=== PATIENT | female | born 1990 | race Asian ===

== ENCOUNTER 2023-11-12 21:15 | Inpatient (IN) | payer BC ==
[2023-11-12] MEDS: Lactated Ringers 1,000 ML IV SCH (21:25)
[2023-11-12] MEDS ORDERED: Sodium Chloride 0.9% 10 ML Syringe FLUSH PRN (21:28)
[2023-11-12] MEDS ORDERED: Lidocaine 1% 50 ML MDV INJECT PRN (21:28)
[2023-11-12] MEDS ORDERED: Nalbuphine 10 MG/ML Syringe IVPUSH PRN (21:28)
[2023-11-12] MEDS ORDERED: Ondansetron 4 MG/2 ML SDV IVPUSH PRN (21:28)
[2023-11-12 21:47] LABS: BASOPHILS PERCENT AUTO 0.2 % (0.0-1.0); EOSINOPHILS PERCENT AUTO 0.1 % (0.0-6.0); HEMATOCRIT 37.7 % (37.0-47.0); HEMOGLOBIN 12.8 gm/dl (12.0-16.0); IMMATURE GRAN PERCENT AUTO 0.7 % (0.0-0.4); LYMPHOCYTES ABSOLUTE AUTO 1.6 K/mm3 (1.0-4.8); LYMPHOCYTES PERCENT AUTO 11.2 % (24.0-44.0); MEAN CORPUSCULAR HEMOGLOBIN 31.1 pg (28.0-32.0); MEAN CORPUSCULAR VOLUME 91.5 fl (83.0-99.0); MEAN PLATELET VOLUME 9.2 fl (9.4-12.3); MONOCYTES ABSOLUTE AUTO 1.2 K/mm3 (0.0-0.8); MONOCYTES PERCENT AUTO 7.9 % (0.0-8.0); NEUTROPHILS ABSOLUTE AUTO 11.6 K/mm3 (1.8-7.7); NEUTROPHILS PERCENT AUTO 79.9 % (41.0-71.0); PLATELET COUNT,PLT 245 K/mm3 (150-400); RED BLOOD CELL COUNT 4.12 M/mm3 (4.10-5.30); WHITE BLOOD CELL COUNT,WBC 14.58 K/mm3 (3.9-11.3)
[2023-11-12] MEDS ORDERED: diphenhydrAMINE 50 MG/ML SDV IVPUSH PRN (22:07)
[2023-11-12] MEDS ORDERED: ePHEDrine 50 MG/ML SDV IVPUSH PRN (22:07)
[2023-11-12 22:16] LABS: CREATININE 0.9 mg/dL (0.55-1.02); EST CRCL DRUG DOSING (CG) 72.29 mL/min
[2023-11-12] MEDS: fentaNYL 100 MCG/2 ML SDV EPIDUR PRN (22:33)
[2023-11-12] MEDS: Bupivacaine/fentaNYL/NS 100 ML Bag EPIDUR PRN (22:35)
[2023-11-13] MEDS ORDERED: Bupivacaine 0.25% 10 ML SDV ONE ×2
[2023-11-13] MEDS: Oxytocin/Lactated Ringers 30 UNIT/500 ML BAG IV SCH (02:15)
[2023-11-13] MEDS ORDERED: Benzocaine/Menthol 20%-0.5% Spray 78 GM Cannister TOP PRN (04:36)
[2023-11-13] MEDS ORDERED: Phenylephrine 1% 10 MG/ML SDV ONE ×3 (06:19)
[2023-11-13] MEDS ORDERED: Sodium Chloride 0.9% 100 ML ONE (06:19)
[2023-11-13] MEDS: Ibuprofen 600 MG Tab PO SCH (09:00)
[2023-11-13] MEDS ORDERED: Sodium Chloride 0.9% 10 ML Syringe FLUSH SCH (09:00)
[2023-11-13] MEDS: Acetaminophen 325 MG Tab PO PRN (22:21)
[2023-11-13] MEDS: Docusate Sodium 100 MG Cap PO PRN (22:21)
[2023-11-15 01:53] LABS: BASOPHILS ABSOLUTE AUTO 0.1 K/mm3 (0.0-0.2); BASOPHILS PERCENT AUTO 0.3 % (0.0-1.0); EOSINOPHILS ABSOLUTE AUTO 0.1 K/mm3 (0.0-0.4); EOSINOPHILS PERCENT AUTO 0.5 % (0.0-6.0); HEMATOCRIT 28.8 % (37.0-47.0); HEMOGLOBIN 9.9 gm/dl (12.0-16.0); IMMATURE GRAN ABSOLUTE AUTO 0.16 K/mm3 (0.00-0.05); IMMATURE GRAN PERCENT AUTO 0.9 % (0.0-0.4); LYMPHOCYTES ABSOLUTE AUTO 2.6 K/mm3 (1.0-4.8); MEAN CORPUSCULAR HEMOGLOBIN 31.4 pg (28.0-32.0); MEAN CORPUSCULAR HGB CONC 34.4 g/dl (32.0-36.0); MEAN CORPUSCULAR VOLUME 91.4 fl (83.0-99.0); MEAN PLATELET VOLUME 8.8 fl (9.4-12.3); MONOCYTES ABSOLUTE AUTO 1.5 K/mm3 (0.0-0.8); MONOCYTES PERCENT AUTO 7.9 % (0.0-8.0); NEUTROPHILS ABSOLUTE AUTO 14.1 K/mm3 (1.8-7.7); NEUTROPHILS PERCENT AUTO 76.4 % (41.0-71.0); PLATELET COUNT,PLT 213 K/mm3 (150-400); RED BLOOD CELL COUNT 3.15 M/mm3 (4.10-5.30)
[2023-11-15] MEDS: Ferrous Sulfate 324 MG Tab.EC PO SCH (08:30)
[2023-11-15] MEDS: Witch Hazel Medicated Pads 40/Jar TOP PRN (15:07)
== END 2023-11-15 18:20 | disposition home or self-care (01) | DRG 560 ==
LOC: JD.OBCHECK 21:15 → JD.OB 21:16 → JD.OBCHECK 11-13 02:33 → OBSVTOIN 11-13 02:38 → JD.OB 11-13 02:39
PROVIDERS: ADMIT Obstetrics & Gynecology; ATTEND Obstetrics & Gynecology
PROC: 10E0XZZ Delivery of Products of Conception, External Approach (ICD-10-PCS; principal; 2023-11-13)
PROC: 0KQM0ZZ Repair Perineum Muscle, Open Approach (ICD-10-PCS; 2023-11-13)
PROC: 3E0R3BZ Introduction of Anesthetic Agent into Spinal Canal, Percutaneous Approach (ICD-10-PCS; 2023-11-13)
PROC: 00HU33Z Insertion of Infusion Device into Spinal Canal, Percutaneous Approach (ICD-10-PCS; 2023-11-13)
DX: O13.4 Gestational [pregnancy-induced] hypertension without significant proteinuria, complicating childbirth (principal); Z37.0 Single live birth; D62 Acute posthemorrhagic anemia; O70.1 Second degree perineal laceration during delivery; O90.81 Anemia of the puerperium; Z3A.37 37 weeks gestation of pregnancy
CPT/HCPCS: 36415; 51701; 59025; 59409; 82565; 84450; 84460; 85025; 86592; 86850; 86900; 86901; 93005; 93010; A9270-GY; C1758; J0665; J2371; J3010; J3490; J7120; J7999